=== PATIENT | male | born 1985 | race Caucasian/White ===

== ENCOUNTER 2019-08-20 02:50 | Inpatient (IN) | payer MEDICAID ==
[~2019-08-20] VITALS: Ht 188 cm; Wt 81.9 kg
[2019-08-20 03:29] LABS: BASOPHILS % (AUTO) 0.6 % (0.0-2.0); EOSINOPHILS % (AUTO) 0.1 % (1.0-6.0); HEMATOCRIT 42.2 % (41-53); LYMPHOCYTES # (AUTO) 0.9 K/uL (1.0-4.8); LYMPHOCYTES % (AUTO) 6.9 % (22.0-44.0); MEAN CORPUSCULAR HEMOGLOBIN 32.5 pg (26.0-34.0); MEAN CORPUSCULAR HGB CONC 33.1 G/dL (31.0-37.0); MEAN CORPUSCULAR VOLUME 98 fL (80-100); MONOCYTES # (AUTO) 0.8 K/uL (0.1-1.0); MONOCYTES % (AUTO) 5.7 % (2.0-9.0); NEUTROPHILS # (AUTO) 11.8 K/uL (1.8-7.7); NEUTROPHILS % (AUTO) 86.7 % (40.0-70.0); PLATELET COUNT (AUTO) 266 K/uL (150-450); RED BLOOD CELL COUNT(AUTO) 4.29 MIL/uL (4.50-5.90); RED CELL DISTRIBUTION WIDTH 12.7 % (11.5-14.5)
[2019-08-20 03:39] LABS: ANION GAP 10 mmol/L (8-16); CALCIUM, TOTAL 9.4 mg/dL (8.8-10.5); CARBON DIOXIDE 28 mmol/L (22-29); CHLORIDE 103 mmol/L (98-107); CREATININE 0.86 mg/dL (0.60-1.30); GLOMERULAR FILTR. RATE CALC > 60 mL/min (>60); GLUCOSE,RANDOM 106 mg/dL (70-110); POTASSIUM 3.6 mmol/L (3.5-5.1); SODIUM SERUM 141 mmol/L (136-145); UREA NITROGEN, BLOOD 8 mg/dL (7-18)
[2019-08-20 03:45] LABS: ALANINE AMINOTRANSFERASE 60 U/L (12-78); ALBUMIN 4.4 g/dL (3.4-5.0); ALKALINE PHOSPHATASE 57 U/L (46-116); ASPARTATE AMINOTRANSFERASE 30 U/L (15-37); BILIRUBIN,TOTAL 0.3 mg/dL (0.1-1.0); TOTAL PROTEIN, SERUM 7.2 g/dL (6.4-8.2)
[2019-08-20] MEDS ORDERED: LORazepam 2 MG TABLET PO ONE (04:00)
[2019-08-20 04:34] LABS: AMPHET/METH SCREEN,URINE POSITIVE (NEGATIVE); BARBITURATE SCREEN, URINE NEGATIVE (NEGATIVE); BENZODIAZEPINES SCREEN,URINE NEGATIVE (NEGATIVE); CANNABINOID SCREEN,URINE POSITIVE (NEGATIVE); COCAINE SCREEN,URINE NEGATIVE (NEGATIVE); METHADONE SCREEN, URINE NEGATIVE (NEGATIVE); OPIATE SCREEN,URINE NEGATIVE (NEGATIVE)
[2019-08-20 04:35] LABS: PHENCYCLIDINE SCREEN,URINE NEGATIVE (NEGATIVE)
[2019-08-20] MEDS ORDERED: ZOLPIDEM TARTRATE 10 MG TABLET PO PRN (05:30)
[2019-08-20] MEDS ORDERED: HALOPERIDOL 5 MG TABLET PO PRN (05:30)
[2019-08-20] MEDS: LORazepam 2 MG TABLET PO PRN (10:14)
[2019-08-20 10:22] VITALS: BP 137/84
[2019-08-20] MEDS ORDERED: INFLUENZA VIRUS VACCINE QVS 2019-20 (3YR+)/PF 60 MCG/0.5 ML SYRINGE IM ONE (12:15)
[2019-08-20] MEDS: FLUoxetine HCL 20 MG CAPSULE PO SCH (16:49)
[2019-08-20] MEDS: OLANZapine 5 MG TABLET PO SCH (16:49)
[2019-08-20] MEDS: SULFAMETHOX/TRIMETH DS 800-160 MG/TABLET PO SCH (19:51)
[2019-08-21] MEDS: OLANZapine 5 MG TABLET PO SCH (10:16)
[2019-08-21] MEDS: LORazepam 2 MG TABLET PO PRN (10:16)
[2019-08-21] MEDS: FLUoxetine HCL 20 MG CAPSULE PO SCH (10:16)
[2019-08-21] MEDS: SULFAMETHOX/TRIMETH DS 800-160 MG/TABLET PO SCH ×2 (10:16→17:59)
[2019-08-21 16:45] VITALS: BP 130/84
[2019-08-21] MEDS: OLANZapine 7.5 MG TABLET PO SCH (20:21)
[2019-08-22] MEDS: SULFAMETHOX/TRIMETH DS 800-160 MG/TABLET PO SCH ×2 (07:55→16:37)
[2019-08-22] MEDS: FLUoxetine HCL 20 MG CAPSULE PO SCH (07:55)
[2019-08-22 13:10] VITALS: BP 137/68
[2019-08-22] MEDS ORDERED: BISACODYL 5 MG EC TABLET PO PRN (14:00)
[2019-08-22 16:19] VITALS: BP 123/68
[2019-08-22] MEDS: LORazepam 2 MG TABLET PO PRN (18:17)
[2019-08-22] MEDS: OLANZapine 7.5 MG TABLET PO SCH (20:43)
[2019-08-23] MEDS: SULFAMETHOX/TRIMETH DS 800-160 MG/TABLET PO SCH (08:45)
[2019-08-23] MEDS: FLUoxetine HCL 20 MG CAPSULE PO SCH (08:45)
[2019-08-23] MEDS ORDERED: FLUO-191 PO (10:08)
[2019-08-23] MEDS ORDERED: OLAN7.5T2 PO (10:09)
[2019-08-23] MEDS ORDERED: SULF1TAB42 PO (10:12)
[2019-08-23 11:13] VITALS: BP 126/73
== END 2019-08-23 11:04 | disposition home or self-care (01) | DRG 885 ==
LOC: EMS 02:54 → 3EC 05:00
PROVIDERS: ADMIT Psychiatry & Neurology Psychiatry; ATTEND Psychiatry & Neurology Psychiatry
DX: F25.0 Schizoaffective disorder, bipolar type (principal); F19.20 Other psychoactive substance dependence, uncomplicated; R45.851 Suicidal ideations; D72.829 Elevated white blood cell count, unspecified; F12.10 Cannabis abuse, uncomplicated; F11.90 Opioid use, unspecified, uncomplicated; F15.10 Other stimulant abuse, uncomplicated; K59.00 Constipation, unspecified; Z91.14 Patient's other noncompliance with medication regimen
CPT/HCPCS: G0480